=== PATIENT | female | born 1945 ===

== ENCOUNTER 2020-03-28 10:48 | Outpatient (CLI) | payer SELFPAY ==
[2020-03-28] MEDS ORDERED: COVID-19 VACC, MRNA(PFIZER)/PF 30 MCG/0.3 ML IM ONE (14:00)
== END 2020-03-28 10:49 | disposition home or self-care (01) ==
LOC: COVVAC 10:48
DX: Z23 Encounter for immunization (principal)
CPT/HCPCS: 0001A